=== PATIENT | female | born 1990 | race Caucasian/White ===

== ENCOUNTER 2017-07-26 00:01 | Emergency (ER) | payer BC, MEDICAID ==
[2017-07-26 00:44] LABS: CHLORIDE,CL 103 mmol/L (98-107); SODIUM,NA 136 mmol/L (136-145)
[2017-07-26] MEDS ORDERED: Acetaminophen/oxyCODONE 325-5 MG Tab PO ONE (00:47)
[2017-07-26] MEDS ORDERED: Ondansetron 4 MG Tab.DIS PO ONE (00:47)
[2017-07-26] MEDS ORDERED: Sodium Chloride 0.9% 10 ML Syringe FLUSH PRN (01:04)
[2017-07-26] MEDS ORDERED: Sodium Chloride 0.9% 1,000 ML IV ONE (01:07)
[2017-07-26] MEDS ORDERED: HYDROmorphone 1 MG/ML Syringe IVPUSH ONE (01:08)
--- NOTE | 2017-07-26 01:13 | EDM.PDOC ---
ED HPI GENERAL MEDICAL PROBLEM - General Chief Complaint: Abdominal Pain Stated Complaint: right abd pain Time Seen by Provider: 07/26/17 00:46 Source of Information: Reports: Patient History Limitations: Reports: No Limitations - History of Present Illness INITIAL COMMENTS - FREE TEXT/NARRATIVE: Patient presents with worsening right upper abdominal pain that has been present for approximately two weeks. When present, it is usually noted at night. No emesis. No fevers/chills. No history of similar pain in past. Patient denies bowel changes. Currently it feels better when she is sitting up versus laying down. Patient denies any recent injuries. No changes. No hematuria. No history of gallstones or kidney stones. Patient is approximately 7 weeks and had recent US study to confirm IUP this week. Estimated due date is March 15. Right Upper Abdomen Pain Score (Numeric/FACES): 10 - Related Data Allergies Allergy/AdvReac Type Severity Reaction Status Date / Time contact metal agent Allergy Hives Verified 07/26/17 00:03 ibuprofen Allergy Hives Verified 07/26/17 00:03 latex Allergy Hives Verified 07/26/17 00:03 Home Meds: Home Meds PNV#71/Iron/Folic Acid/DHA [Prena1 Beverly Softgel] 2 tab PO DAILY 07/26/17 [ History] Past Medical History Respiratory History: Reports: Asthma [employer] History: Reports: Polycystic Ovaries, , Spontaneous Psychiatric History: Reports: Anxiety, Depression Endocrine/Metabolic History: Reports: Obesity/BMI 30+ - Past Surgical History HEENT Surgical History: Reports: Adenoidectomy, Tonsillectomy Dermatological Surgical History: Reports: Other (See Below) Social & Family History - Tobacco Use Smoking Status *Q: Current Every Day Smoker Tobacco Use Within Last Twelve Months: Cigarettes Packs/Tins Daily: 0.3 - Alcohol Use Alcohol Use History: No Days Per Week of Alcohol Use: 0 - Recreational Drug Use Recreational Drug Use: No ED ROS GENERAL - Review of Systems Review Of Systems: See Below Constitutional: Reports: Decreased Appetite, Weight Loss. Denies: Fever, Chills , Malaise, Weakness, Fatigue, Night Sweats, Diaphoresis HEENT: Reports: No Symptoms Respiratory: Reports: No Symptoms. Denies: Shortness of Breath, Cough Cardiovascular: Reports: No Symptoms. Denies: Chest Pain GI/Abdominal: Reports: Abdominal Pain (RUQ), Decreased Appetite, Other (pain radiates to back). Denies: Black Stool, Bloody Stool, Constipation, Diarrhea, Difficulty Swallowing, Vomiting : Denies: Dysuria, Frequency, Hematuria, Urgency Musculoskeletal: Reports: Back Pain (pain radiates to right mid back) Skin: Reports: No Symptoms Neurological: Reports: No Symptoms Psychiatric: Reports: No Symptoms ED EXAM, GI/ABD - Physical Exam Exam: See Below Exam Limited By: No Limitations General Appearance: Alert, Moderate Distress, Obese Eyes: Bilateral: Normal Appearance, EOMI Ears: Normal External Exam Nose: No: Nasal Swelling, Nasal Drainage Throat/Mouth: Normal Lips, Normal Voice, No Airway Compromise Head: Atraumatic, Normocephalic Neck: Normal Inspection, Supple, Non-Tender, Lymphadenopathy (L) Respiratory/Chest: No Respiratory Distress, Lungs Clear, Normal Breath Sounds, No Accessory Muscle Use, Chest Non-Tender Cardiovascular: Normal Peripheral Pulses, Regular Rate, Rhythm, No Edema, No Murmur GI/Abdominal Exam: Normal Bowel Sounds, Soft, Tender (RUQ) (Female) Exam: Deferred Rectal (Female) Exam: Deferred Extremities: Normal Inspection, Normal Range of Motion, Normal Capillary Refill Neurological: Alert, Oriented, Normal Cognition, Normal Gait, No Motor/Sensory Deficits Psychiatric: Anxious Skin Exam: Warm, Dry, Intact, Normal Color Course - Vital Signs Last Recorded V/S: Last Vital Signs Temp 37.1 C 07/26/17 00:07 Pulse 85 07/26/17 00:07 Resp 22 H 07/26/17 00:07 BP 102/47 L 07/26/17 00:07 Pulse Ox 100 07/26/17 00:07 - Orders/Labs/Meds Orders: Active Orders 24 hr Category Date Time Status CULTURE URINE [RM] Routine Lab 07/26/17 00:46 Uncollected Sodium Chloride 0.9% [Normal Saline] 1,000 ml Med 07/26/17 01:07 Ordered IV .BOLUS Sodium Chloride 0.9% [Saline Flush] Med 07/26/17 01:04 Ordered 10 ml FLUSH ASDIRECTED PRN Saline Lock Insert [OM.PC] Stat Oth 07/26/17 01:04 Ordered Medication Orders Sodium Chloride (Normal Saline) 1,000 mls @ 250 mls/hr IV .BOLUS ONE Stop: 07/26/17 05:06 Sodium Chloride (Saline Flush) 10 ml FLUSH ASDIRECTED PRN PRN Reason: Keep Vein Open Labs: Laboratory Tests 07/26/17 07/26/17 07/26/17 Range/Units 00:16 00:25 00:25 WBC 12.4 H (4.0-10.2) K/uL RBC 3.90 (3.77-5.09) M/uL Hgb 12.0 (11.7-15.5) g/dL Hct 35.0 (34.0-46.0) % MCV 89.7 (84.0-98.0) fL MCH 30.8 (28.2-33.3) pg MCHC 34.3 (31.7-36.0) g/dL RDW 13.0 (11.2-14.1) % Plt Count 202 (150-350) K/uL Neut % (Auto) 67.8 (45.0-80.0) % Lymph % (Auto) 22.8 (10.0-50.0) % Glynn % (Auto) 8.3 (2.0-14.0) % Eos % (Auto) 0.9 (0.0-5.0) % Baso % (Auto) 0.2 (0.0-2.0) % Neut # (Auto) 8.41 H (1.40-7.00) K/uL Lymph # (Auto) 2.83 (0.50-3.50) K/uL Glynn # (Auto) 1.03 H (0.00-1.00) K/uL Eos # (Auto) 0.11 (0.00-0.50) K/uL Baso # (Auto) 0.03 (0.00-0.20) K/uL Sodium 136 (136-145) mmol/L Potassium 3.8 (3.5-5.1) mmol/L Chloride 103 (98-107) mmol/L Carbon Dioxide 24.2 (21.0-32.0) mmol/L BUN 13 (7-18) mg/dL Creatinine 0.56 (0.51-1.17) mg/dL Est Cr Clr Drug Dosing 150.64 mL/min Estimated GFR (MDRD) > 60 mL/min Glucose 87 (74-106) mg/dL Calcium 9.0 (8.5-10.1) mg/dL Total Bilirubin 0.3 (0.2-1.0) mg/dL AST 16 (15-37) U/L ALT 19 (12-78) U/L Alkaline Phosphatase 58 (46-116) IU/L Total Protein 7.2 (6.4-8.2) g/dL Albumin 3.6 (3.4-5.0) g/dL Amylase (25-115) U/L Lipase (73-393) U/L Specimen Type Urincc Urine Color Yellow Urine Appearance Slightly cloudy Urine pH 5.5 (5.0-9.0) Ur Specific Mcdougal 1.025 (1.005-1.030) Urine Protein Negative (NEGATIVE) mg/dL Urine Glucose (UA) Negative (NEGATIVE) mg/dL Urine Ketones Negative (NEGATIVE) mg/dL Urine Occult Blood Trace-intact H (NEGATIVE) Urine Nitrite Negative (NEGATIVE) Urine Bilirubin Negative (NEGATIVE) Urine Urobilinogen 0.2 (0.2-1.0) E.U./dL Ur Leukocyte Esterase Small H (NEGATIVE) Urine RBC 0-5 /HPF Urine WBC 5-10 H /HPF Ur Epithelial Cells Moderate H /LPF Urine Bacteria Few (NONE TO FEW) /HPF 07/26/17 Range/Units 00:25 WBC (4.0-10.2) K/uL RBC (3.77-5.09) M/uL Hgb (11.7-15.5) g/dL Hct (34.0-46.0) % MCV (84.0-98.0) fL MCH (28.2-33.3) pg MCHC (31.7-36.0) g/dL RDW (11.2-14.1) % Plt Count (150-350) K/uL Neut % (Auto) (45.0-80.0) % Lymph % (Auto) (10.0-50.0) % Glynn % (Auto) (2.0-14.0) % Eos % (Auto) (0.0-5.0) % Baso % (Auto) (0.0-2.0) % Neut # (Auto) (1.40-7.00) K/uL Lymph # (Auto) (0.50-3.50) K/uL Glynn # (Auto) (0.00-1.00) K/uL Eos # (Auto) (0.00-0.50) K/uL Baso # (Auto) (0.00-0.20) K/uL Sodium (136-145) mmol/L Potassium (3.5-5.1) mmol/L Chloride (98-107) mmol/L Carbon Dioxide (21.0-32.0) mmol/L BUN (7-18) mg/dL Creatinine (0.51-1.17) mg/dL Est Cr Clr Drug Dosing mL/min Estimated GFR (MDRD) mL/min Glucose (74-106) mg/dL Calcium (8.5-10.1) mg/dL Total Bilirubin (0.2-1.0) mg/dL AST (15-37) U/L ALT (12-78) U/L Alkaline Phosphatase (46-116) IU/L Total Protein (6.4-8.2) g/dL Albumin (3.4-5.0) g/dL Amylase 23 L (25-115) U/L Lipase 84 (73-393) U/L Specimen Type Urine Color Urine Appearance Urine pH (5.0-9.0) Ur Specific Mcdougal (1.005-1.030) Urine Protein (NEGATIVE) mg/dL Urine Glucose (UA) (NEGATIVE) mg/dL Urine Ketones (NEGATIVE) mg/dL Urine Occult Blood (NEGATIVE) Urine Nitrite (NEGATIVE) Urine Bilirubin (NEGATIVE) Urine Urobilinogen (0.2-1.0) E.U./dL Ur Leukocyte Esterase (NEGATIVE) Urine RBC /HPF Urine WBC /HPF Ur Epithelial Cells /LPF Urine Bacteria (NONE TO FEW) /HPF Meds: Medications Generic Name Dose Route Start Last Admin Trade Name Freq PRN Reason Stop Dose Admin Sodium Chloride 1,000 mls @ 250 mls/hr 07/26/17 01:07 Normal Saline IV 07/26/17 05:06 .BOLUS ONE Sodium Chloride 10 ml 07/26/17 01:04 Saline Flush FLUSH ASDIRECTED PRN Keep Vein Open Discontinued Medications Generic Name Dose Route Start Last Admin Trade Name Freq PRN Reason Stop Dose Admin Hydromorphone HCl 1 mg 07/26/17 01:08 Dilaudid IVPUSH 07/26/17 01:09 ONETIME ONE Ondansetron HCl 4 mg 07/26/17 00:47 07/26/17 00:53 Zofran Odt PO 07/26/17 00:48 4 mg ONETIME ONE Administration Oxycodone/Acetaminophen 1 tab 07/26/17 00:47 07/26/17 00:53 Percocet 325-5 Mg PO 07/26/17 00:48 1 tab ONETIME ONE Administration - Re-Assessments/Exams Free Text/Narrative Re-Assessment/Exam: 07/26/17 01:15 WBC elevated at 12.4 Normal LFTs/Amylase/Lipase Suspect acute GB disease, cannot rule out possible kidney stone. Patient would benefit from US study. Would like to avoid CT scan for now due to radiation concerns with . Arrangements made with at [facility] to transfer patient to their facility in order to have her obtain an US study of right upper abdomen tonight. They will determine further care once study has been obtained. Patient initially was going to go by private car after receiving PO pain meds. Given the amount of discomfort she was in EMS transfer discussed and she was agreeable. IV access attempted but unsuccessful. Dilaudid given IM for additional pain relief. Departure - Departure Time of Disposition: 01:50 Disposition: DC/Tfer to Acute Hospital 02 Condition: Good Clinical Impression: Right upper quadrant abdominal pain, First trimester - Discharge Information Referrals: PCP,None [Primary Care Provider] - Forms: ED Department Discharge, Interfacility Transfer EMTALA - My Orders Last 24 Hours: My Active Orders 07/26/17 00:46 CULTURE URINE [RM] Routine 07/26/17 01:04 Sodium Chloride 0.9% [Saline Flush] 10 ml FLUSH ASDIRECTED PRN Saline Lock Insert [OM.PC] Stat 07/26/17 01:07 Sodium Chloride 0.9% [Normal Saline] 1,000 ml IV .BOLUS - Assessment/Plan Last 24 Hours: My Active Orders 07/26/17 00:46 CULTURE URINE [RM] Routine 07/26/17 01:04 Sodium Chloride 0.9% [Saline Flush] 10 ml FLUSH ASDIRECTED PRN Saline Lock Insert [OM.PC] Stat 07/26/17 01:07 Sodium Chloride 0.9% [Normal Saline] 1,000 ml IV .BOLUS
[2017-07-26] MEDS ORDERED: HYDROmorphone 1 MG/ML Syringe IM ONE (01:34)
== END 2017-07-26 01:54 ==
LOC: LL.ED 00:01
DX: O99.89 Other specified diseases and conditions complicating pregnancy, childbirth and the puerperium (principal); R10.11 Right upper quadrant pain; E66.9 Obesity, unspecified; O99.211 Obesity complicating pregnancy, first trimester; O99.331 Smoking (tobacco) complicating pregnancy, first trimester; Z88.8 Allergy status to other drugs, medicaments and biological substances; F17.210 Nicotine dependence, cigarettes, uncomplicated; Z91.040 Latex allergy status
CPT/HCPCS: 36415; 80053; 81001; 82150; 83690; 85025; 87086; 96372; 99285; A9270; J1170